=== PATIENT | male | born 1945 | race Caucasian/White ===

== ENCOUNTER 2020-10-30 14:40 | Emergency (ER) | payer MEDICARE, OTHER ==
[~2020-10-30 14:40] MED LIST: ACTOS45 MG PO; ADVAIR 250-501 EACH INH; ALEVE220 MG PO; AMARYL2 MG PO; AUGMENTIN 875-1 EACH PO; AZITHROMYCIN250 MG PO; CELEBREX **OUT100 MG PO; CERTAGEN1 EACH PO; CLARITIN10 MG PO; COZAAR 25MG TAB25 MG PO; DIFLUCAN 100MG100 MG PO; FISH OIL EC 1,1 EAC1 PO; JANUMET 50-1,01 EACH PO; K-TAB ER10 MEQ PO; LASIX20 MG PO; LEVAQUIN750 MG PO; LIPITOR40 MG PO; LOPRESSOR25 MG PO; MEDROL 4MG DOSEP4 MG PO; NORVASC5 MG PO; PERCOCET 5-3251 EACH PO; SPIRIVA18 MCG INH; TURMERIC500 M1 PO; VENTOLIN (1.25 MG/3 NEB; VENTOLIN HFA IN18 GM INH; VITAMIN D31000 UNIT PO; VITAMIN E400 UNI2 PO; ZPAK PO
[2020-10-30 16:08] LABS: BASOPHIL 0.4 % (0-2); EOSINOPHIL 0.1 % (0-7); HCT 41.8 % (42.0-52.0); HGB 13.1 g/dl (13.2-18.0); LYMPHOCYTE 12.1 % (15-48); MCH 29.8 pg (25.0-31.0); MCHC 31.3 g/dL (32.0-36.0); MONOCYTE 18.8 % (0-12); MPV 10.1 fL (6.0-9.5); NEUTROPHIL 68.3 % (41-80); NRBC 0; PLT 224 K/uL (150-400); RDW 15.8 % (11.5-14.0); WBC 6.8 K/uL (4.0-10.5)
[2020-10-30 16:18] LABS: PTT 32.4 SECONDS (22.2-34.7)
[2020-10-30 16:19] LABS: D-DIMER 0.59 ug/mLFEU (0.00-0.41)
[2020-10-30 16:22] LABS: INR 0.98 (0.9-1.2); PROTHROMBIN TIME 12.3 SECONDS (11.4-13.6)
[2020-10-30 16:25] LABS: ALBUMIN 3.7 g/dL (3.4-5.0); BILIRUBIN - TOTAL 0.4 mg/dL (0.2-1.0); BUN/CREAT RATIO (CALC) 20.8 RATIO; C-REACTIVE PROTEIN 4.7 mg/dL (<=0.90); CREATININE 0.77 mg/dL (0.67-1.17); GLOBULIN (CALCULATION) 4.2 g/dL; POTASSIUM 4.2 mmol/L (3.5-5.1); TOTAL PROTEIN 7.9 g/dL (6.4-8.2)
[2020-10-30 16:30] LABS: PRO-BNP 29 pg/mL (<450)
[2020-10-30 16:34] LABS: LACTIC ACID 1.7 mmol/L (0.4-1.9)
[2020-10-30 16:46] LABS: CORONAVIRUS 2019 SARS-COV-2 POSITIVE (NEGATIVE); INFLUENZA A NAA NEGATIVE (NEGATIVE)
== END 2020-10-30 18:25 | disposition home or self-care (01) ==
LOC: FER 14:40
PROVIDERS: Emergency Medicine
DX: U07.1 COVID-19 (principal); J96.21 Acute and chronic respiratory failure with hypoxia; J44.1 Chronic obstructive pulmonary disease with (acute) exacerbation; Z99.81 Dependence on supplemental oxygen; Z91.030 Bee allergy status; Z91.048 Other nonmedicinal substance allergy status
CPT/HCPCS: 36415; 36600; 71045; 71275; 80053; 82803; 83605; 83880; 84484; 85025; 85379; 85610; 85730; 86140; 87040; 93005; 94640; J1100; Q9967; U0002

== ENCOUNTER 2020-11-05 17:33 | Inpatient (IN) | payer MEDICARE, OTHER ==
[2020-11-05 18:30] LABS: BASOPHIL 0.3 % (0-2); EOSINOPHIL 0.1 % (0-7); LYMPHOCYTE 11.3 % (15-48); MCH 30.2 pg (25.0-31.0); MCHC 31.8 g/dL (32.0-36.0); MCV 94.8 fL (78.0-100.0); MONOCYTE 12.4 % (0-12); MPV 9.4 fL (6.0-9.5); NEUTROPHIL 74.9 % (41-80); NRBC 0; PLT 286 K/uL (150-400); RBC 4.64 M/uL (4.70-6.00); RDW 15.4 % (11.5-14.0); WBC 8.6 K/uL (4.0-10.5)
[2020-11-05 18:52] LABS: LACTIC ACID 2.3 mmol/L (0.4-1.9)
[2020-11-05 18:57] LABS: ALBUMIN 3.3 g/dL (3.4-5.0); BILIRUBIN - TOTAL 0.4 mg/dL (0.2-1.0); BUN/CREAT RATIO (CALC) 32.1 RATIO; CREATININE 0.81 mg/dL (0.67-1.17); GLOBULIN (CALCULATION) 4.3 g/dL; POTASSIUM 4.6 mmol/L (3.5-5.1); TOTAL PROTEIN 7.6 g/dL (6.4-8.2)
[2020-11-05 19:30] LABS: BILIRUBIN NEGATIVE (NEGATIVE); BLOOD NEGATIVE Ery/uL (NEGATIVE); CLARITY CLEAR (CLEAR); COLOR YELLOW (YELLOW); GLUCOSE (U) NORMAL (NORMAL); LEUKOCYTES NEGATIVE Leu/uL (NEGATIVE); NITRITE NEGATIVE (NEGATIVE); PROTEIN NEGATIVE (NEGATIVE); SPECIFIC GRAVITY 1.025 (1.001-1.030); UROBILINOGEN 0.2 mg/dL (0.2-1.0); pH 5.5 (5.0-9.0)
[2020-11-05 22:19] LABS: CORONAVIRUS 2019 SARS-COV-2 POSITIVE (NEGATIVE); INFLUENZA A NAA NEGATIVE (NEGATIVE)
[2020-11-05] MEDS ORDERED: AMARYL 2MG TABLE2 MG PO (22:41)
[2020-11-05] MEDS ORDERED: ACTOS45 MG PO (22:42)
[2020-11-05] MEDS ORDERED: JANUMET XR 1001 EACH PO (22:42)
[2020-11-05] MEDS ORDERED: ADVAIR 250-501 EACH INH (22:42)
[2020-11-05] MEDS ORDERED: AZITHROMYCIN 2250 MG PO (22:43)
[2020-11-05] MEDS ORDERED: PROTONIX 40MG T40 MG PO (22:44)
[2020-11-05] MEDS ORDERED: VENTOLIN (2.5 MG/3 M INH (22:44)
[2020-11-05] MEDS ORDERED: TOPROL XL 25MG25 MG PO (22:45)
[2020-11-05] MEDS ORDERED: ASPIRIN CHEWABL81 MG PO (22:46)
[2020-11-05] MEDS ORDERED: NORVASC5 MG PO (22:46)
[2020-11-05] MEDS ORDERED: LIPITOR40 MG PO (22:47)
[2020-11-05] MEDS ORDERED: SPIRIVA18 MCG INH (22:48)
[2020-11-05] MEDS ORDERED: CELEBREX 200MG200 MG PO (22:49)
[2020-11-05] MEDS ORDERED: COZAAR25 MG PO (22:49)
[2020-11-05] MEDS ORDERED: CLARITIN10 MG PO (22:50)
[2020-11-05] MEDS ORDERED: PLAVIX75 MG PO (22:50)
[2020-11-06 06:13] LABS: BASOPHIL 0.3 % (0-2); EOSINOPHIL 0.2 % (0-7); HCT 45.2 % (42.0-52.0); HGB 14.3 g/dl (13.2-18.0); LYMPHOCYTE 14.9 % (15-48); MCH 29.9 pg (25.0-31.0); MCHC 31.6 g/dL (32.0-36.0); MCV 94.4 fL (78.0-100.0); MONOCYTE 12.4 % (0-12); MPV 9.5 fL (6.0-9.5); NEUTROPHIL 70.8 % (41-80); NRBC 0; PLT 308 K/uL (150-400); RBC 4.79 M/uL (4.70-6.00); RDW 15.6 % (11.5-14.0); WBC 9.5 K/uL (4.0-10.5)
[2020-11-06 06:40] LABS: ALBUMIN 3.2 g/dL (3.4-5.0); BILIRUBIN - TOTAL 0.4 mg/dL (0.2-1.0); BUN/CREAT RATIO (CALC) 26.4 RATIO; CREATININE 0.72 mg/dL (0.67-1.17); GLOBULIN (CALCULATION) 4.7 g/dL; POTASSIUM 4.3 mmol/L (3.5-5.1); TOTAL PROTEIN 7.9 g/dL (6.4-8.2)
--- NOTE | 2020-11-08 14:43 | NUR ---
11/08/20 Mr. Turner lives at home with his spouse. He has home 02 for night use. He also has a rw, s. chair and 3in1 which he does not use. A referral was made to [facility] per patient choice in anticipation of discharge for 11/09/20. Report given to MS NORRIS Mcdaniels.
[2020-11-09 06:16] LABS: BASOPHIL 0.2 % (0-2); EOSINOPHIL 0.3 % (0-7); HCT 40.1 % (42.0-52.0); HGB 12.9 g/dl (13.2-18.0); MCH 29.9 pg (25.0-31.0); MCHC 32.2 g/dL (32.0-36.0); MCV 92.8 fL (78.0-100.0); MONOCYTE 13.1 % (0-12); MPV 9.4 fL (6.0-9.5); NEUTROPHIL 68.4 % (41-80); NRBC 0; PLT 297 K/uL (150-400); RBC 4.32 M/uL (4.70-6.00); RDW 14.8 % (11.5-14.0); WBC 8.6 K/uL (4.0-10.5)
[2020-11-09 06:31] LABS: LYMPHOCYTE 16.4 % (15-48)
[2020-11-09 06:49] LABS: BUN/CREAT RATIO (CALC) 31.1 RATIO; C-REACTIVE PROTEIN 3.4 mg/dL (<=0.90); CREATININE 0.61 mg/dL (0.67-1.17); MAGNESIUM 1.8 mg/dL (1.8-2.4); POTASSIUM 4.2 mmol/L (3.5-5.1)
[2020-11-09] MEDS ORDERED: DEXAMETHASONE 2M2 MG PO (14:36)
[2020-11-09] MEDS ORDERED: ASCORBIC ACID500 MG PO (14:36)
[2020-11-09] MEDS ORDERED: DULERA 200 MCG8.8 GM INH (14:36)
[2020-11-09] MEDS ORDERED: ZINC SULFATE220 M1 PO (14:36)
[2020-11-09] MEDS ORDERED: VITAMIN D325 MC1 PO (14:36)
== END 2020-11-09 16:00 | disposition home health service (06) | DRG 177 ==
LOC: FER 17:33 → FMS 20:15
PROVIDERS: Emergency Medicine; Internal Medicine; Nurse Practitioner; ADMIT Internal Medicine
PROC: 8E0ZXY6 Isolation (ICD-10-PCS; principal; 2020-11-05)
PROC: XW033E5 Introduction of Remdesivir Anti-infective into Peripheral Vein, Percutaneous Approach, New Technology Group 5 (ICD-10-PCS; 2020-11-05)
PROC: 3E0333Z Introduction of Anti-inflammatory into Peripheral Vein, Percutaneous Approach (ICD-10-PCS; 2020-11-05)
DX: U07.1 COVID-19 (principal); J12.82 Pneumonia due to coronavirus disease 2019; J96.21 Acute and chronic respiratory failure with hypoxia; J44.1 Chronic obstructive pulmonary disease with (acute) exacerbation; J44.0 Chronic obstructive pulmonary disease with (acute) lower respiratory infection; I10 Essential (primary) hypertension; I25.10 Atherosclerotic heart disease of native coronary artery without angina pectoris; G47.33 Obstructive sleep apnea (adult) (pediatric); J20.9 Acute bronchitis, unspecified; E11.9 Type 2 diabetes mellitus without complications; E86.0 Dehydration; E78.5 Hyperlipidemia, unspecified; M19.90 Unspecified osteoarthritis, unspecified site; E11.51 Type 2 diabetes mellitus with diabetic peripheral angiopathy without gangrene; Z96.652 Presence of left artificial knee joint; Z99.81 Dependence on supplemental oxygen; Z87.891 Personal history of nicotine dependence; Z98.890 Other specified postprocedural states
CPT/HCPCS: 36415; 36600; 71045; 80048; 80053; 81003; 82728; 82803; 82962; 83605; 83735; 84145; 85025; 86140; 87040; 94010; 94640; 94667; 94668; 94760; 94762; C9399; J0456; J1650; J7030; J7050; J8540; U0002

== ENCOUNTER 2020-12-01 09:42 | Inpatient (IN) | payer MEDICARE, OTHER ==
[~2020-12-01 09:42] MED LIST changes: +AMARYL 2MG TABLE2 MG PO; +ASCORBIC ACID500 MG PO; +ASPIRIN CHEWABL81 MG PO; +AZITHROMYCIN 2250 MG PO; +CELEBREX 200MG200 MG PO; +COZAAR25 MG PO; +DEXAMETHASONE 2M2 MG PO; +DULERA 200 MCG8.8 GM INH; +JANUMET XR 1001 EACH PO; +PLAVIX75 MG PO; +PROTONIX 40MG T40 MG PO; +TOPROL XL 25MG25 MG PO; +VENTOLIN (2.5 MG/3 M INH; +VITAMIN D325 MC1 PO; +ZINC SULFATE220 M1 PO
[2020-12-01 10:37] LABS: BASOPHIL 0.1 % (0-2); EOSINOPHIL 0.1 % (0-7); HCT 39.3 % (42.0-52.0); HGB 12.9 g/dl (13.2-18.0); LYMPHOCYTE 2.8 % (15-48); MCHC 32.8 g/dL (32.0-36.0); MCV 94.5 fL (78.0-100.0); MONOCYTE 6.2 % (0-12); NEUTROPHIL 89.8 % (41-80); NRBC 0; PLT 223 K/uL (150-400); RBC 4.16 M/uL (4.70-6.00); RDW 15.2 % (11.5-14.0); WBC 20.1 K/uL (4.0-10.5)
[2020-12-01 10:41] LABS: INR 1.02 (0.9-1.2); PROTHROMBIN TIME 12.7 SECONDS (11.4-13.6); PTT 28.2 SECONDS (22.2-34.7)
[2020-12-01 10:48] LABS: ALKALINE PHOSHATASE 101 U/L (46-116); ALT 33 U/L (16-63); AST 12 U/L (15-37); BILIRUBIN - TOTAL 0.6 mg/dL (0.2-1.0); BUN 17 mg/dL (7-18); C-REACTIVE PROTEIN >18.00 mg/dL (<=0.90); CHLORIDE 97 mmol/L (98-107); CO2 (BICARBONATE) 24 mmol/L (21-32); CREATININE 0.63 mg/dL (0.67-1.17); GLOBULIN (CALCULATION) 3.5 g/dL; GLUCOSE 304 mg/dL (74-106); POTASSIUM 4.8 mmol/L (3.5-5.1); TOTAL PROTEIN 6.5 g/dL (6.4-8.2)
[2020-12-01 10:55] LABS: LACTIC ACID 3.3 mmol/L (0.4-1.9)
[2020-12-01 11:49] LABS: CORONAVIRUS 2019 SARS-COV-2 POSITIVE (NEGATIVE); INFLUENZA A NAA NEGATIVE (NEGATIVE)
[2020-12-02 03:29] LABS: HCT 36.8 % (42.0-52.0); HGB 11.9 g/dl (13.2-18.0); MCH 30.4 pg (25.0-31.0); MCHC 32.3 g/dL (32.0-36.0); MCV 94.1 fL (78.0-100.0); MPV 9.8 fL (6.0-9.5); RBC 3.91 M/uL (4.70-6.00); RDW 15.2 % (11.5-14.0); WBC 13.5 K/uL (4.0-10.5)
[2020-12-02 03:45] LABS: BUN/CREAT RATIO (CALC) 20.6 RATIO; CREATININE 0.68 mg/dL (0.67-1.17); POTASSIUM 4.2 mmol/L (3.5-5.1)
[2020-12-04 03:51] LABS: BASOPHIL 0.3 % (0-2); EOSINOPHIL 0.1 % (0-7); HCT 35.4 % (42.0-52.0); HGB 10.8 g/dl (13.2-18.0); LYMPHOCYTE 6.7 % (15-48); MCH 29.8 pg (25.0-31.0); MCHC 30.5 g/dL (32.0-36.0); MCV 97.8 fL (78.0-100.0); MONOCYTE 6.9 % (0-12); MPV 9.8 fL (6.0-9.5); NEUTROPHIL 84.1 % (41-80); NRBC 0; PLT 250 K/uL (150-400); RBC 3.62 M/uL (4.70-6.00); WBC 9.9 K/uL (4.0-10.5)
[2020-12-04 04:36] LABS: BUN/CREAT RATIO (CALC) 28.6 RATIO; CREATININE 0.84 mg/dL (0.67-1.17); MAGNESIUM 2.1 mg/dL (1.8-2.4); PHOSPHORUS 2.8 mg/dL (2.6-4.7); POTASSIUM 4.6 mmol/L (3.5-5.1)
[2020-12-05 03:57] LABS: BASOPHIL 0.2 % (0-2); EOSINOPHIL 0.1 % (0-7); HCT 33.7 % (42.0-52.0); HGB 10.6 g/dl (13.2-18.0); LYMPHOCYTE 8.4 % (15-48); MCH 30.2 pg (25.0-31.0); MCHC 31.5 g/dL (32.0-36.0); MONOCYTE 6.6 % (0-12); MPV 9.8 fL (6.0-9.5); NEUTROPHIL 80.1 % (41-80); NRBC 0; PLT 259 K/uL (150-400); RBC 3.51 M/uL (4.70-6.00); RDW 14.9 % (11.5-14.0); WBC 8.1 K/uL (4.0-10.5)
[2020-12-05 04:13] LABS: BUN/CREAT RATIO (CALC) 31.2 RATIO; CREATININE 0.64 mg/dL (0.67-1.17); MAGNESIUM 1.9 mg/dL (1.8-2.4); POTASSIUM 4.5 mmol/L (3.5-5.1)
[2020-12-05 10:51] LABS: IRON % SATURATION 24.4 %SAT (20-50)
[2020-12-05 11:20] LABS: FOLIC ACID (SERUM) 18.9 ng/mL (8.6-58.9)
[2020-12-05] MEDS ORDERED: MEDROL 4MG DOSEP4 MG PO (12:36)
[2020-12-05] MEDS ORDERED: AUGMENTIN 875-1 EACH PO (12:36)
[2020-12-05] MEDS ORDERED: DUONEB 2.5-0.5M1 AMP NEB (12:36)
[2020-12-05] MEDS ORDERED: DEXAMETHASONE 2M2 MG PO (18:06)
== END 2020-12-05 12:52 | disposition home health service (06) | DRG 871 ==
LOC: FER 09:42 → FTCU 11:05
PROVIDERS: Emergency Medicine; Internal Medicine; ADMIT Hospitalist
DX: A41.9 Sepsis, unspecified organism (principal); J15.9 Unspecified bacterial pneumonia; J96.21 Acute and chronic respiratory failure with hypoxia; U07.1 COVID-19; J44.0 Chronic obstructive pulmonary disease with (acute) lower respiratory infection; E87.2 Acidosis; J44.1 Chronic obstructive pulmonary disease with (acute) exacerbation; R65.20 Severe sepsis without septic shock; Y95 Nosocomial condition; E11.65 Type 2 diabetes mellitus with hyperglycemia; E78.5 Hyperlipidemia, unspecified; I25.10 Atherosclerotic heart disease of native coronary artery without angina pectoris; I73.9 Peripheral vascular disease, unspecified; I10 Essential (primary) hypertension; E66.9 Obesity, unspecified; G47.33 Obstructive sleep apnea (adult) (pediatric); Z99.81 Dependence on supplemental oxygen; Z87.891 Personal history of nicotine dependence
CPT/HCPCS: 36415; 36600; 71250; 80048; 80053; 80202; 82607; 82746; 82803; 82962; 83540; 83550; 83605; 83735; 83880; 84100; 84145; 85025; 85610; 85730; 86140; 87040; 87070; 87077; 87186; 87205; 93005; 94640; 94664; 94667; 94668; 97110; 97162; 97166; 97530-GP; J1650; J1956; J2543; J2920; U0002

== ENCOUNTER 2020-12-14 09:28 | Emergency (ER) | payer MEDICARE, OTHER ==
[~2020-12-14 09:28] MED LIST changes: +DUONEB 2.5-0.5M1 AMP NEB
[2020-12-14 10:07] LABS: BASOPHIL 0.2 % (0-2); EOSINOPHIL 0.1 % (0-7); HCT 37.7 % (42.0-52.0); HGB 12.2 g/dl (13.2-18.0); LYMPHOCYTE 4.7 % (15-48); MCH 31.2 pg (25.0-31.0); MCHC 32.4 g/dL (32.0-36.0); MCV 96.4 fL (78.0-100.0); MPV 10.1 fL (6.0-9.5); NEUTROPHIL 89.2 % (41-80); NRBC 0.1; PLT 286 K/uL (150-400); RBC 3.91 M/uL (4.70-6.00); WBC 20.2 K/uL (4.0-10.5)
[2020-12-14 10:21] LABS: INR 1.02 (0.9-1.2); PROTHROMBIN TIME 12.7 SECONDS (11.4-13.6); PTT 24.7 SECONDS (22.2-34.7)
[2020-12-14 10:22] LABS: D-DIMER 1.83 ug/mLFEU (0.00-0.41)
[2020-12-14 10:30] LABS: BILIRUBIN - TOTAL 0.5 mg/dL (0.2-1.0); BUN/CREAT RATIO (CALC) 35.7 RATIO; C-REACTIVE PROTEIN 10.9 mg/dL (<=0.90); CREATININE 0.7 mg/dL (0.67-1.17); GLOBULIN (CALCULATION) 3.9 g/dL; MAGNESIUM 1.7 mg/dL (1.8-2.4); POTASSIUM 4.3 mmol/L (3.5-5.1); TOTAL PROTEIN 6.9 g/dL (6.4-8.2)
[2020-12-14 10:34] LABS: LACTIC ACID 3.3 mmol/L (0.4-1.9)
[2020-12-14 10:36] LABS: PRO-BNP 224 pg/mL (<450)
== END 2020-12-14 17:04 | disposition other institution (70) ==
LOC: FER 09:28
PROVIDERS: Emergency Medicine
DX: A41.9 Sepsis, unspecified organism (principal); J18.9 Pneumonia, unspecified organism; R65.21 Severe sepsis with septic shock; I49.3 Ventricular premature depolarization; I10 Essential (primary) hypertension; E11.9 Type 2 diabetes mellitus without complications; E66.9 Obesity, unspecified; G47.33 Obstructive sleep apnea (adult) (pediatric); Z99.89 Dependence on other enabling machines and devices; Z98.1 Arthrodesis status; Z99.81 Dependence on supplemental oxygen; Z79.02 Long term (current) use of antithrombotics/antiplatelets; Z20.822 Contact with and (suspected) exposure to COVID-19
CPT/HCPCS: 36415; 36600; 71045; 71275; 80053; 82803; 83605; 83735; 83880; 84145; 84484; 85025; 85379; 85610; 85730; 86140; 87040; 93005; J2543; J3370; J7030; J7050; Q9967; U0002